=== PATIENT | male | born 1980 | race Caucasian/White ===

== ENCOUNTER 2016-09-18 12:26 | Emergency (ER) | payer MEDICAID ==
[~2016-09-18] VITALS: Ht 170.2 cm; Wt 105.5 kg
[~2016-09-18 12:26] MED LIST: ACET325T45 PO; AZIT250T94 PO; DOCU-144 PO; IBUP-1542 PO; IMO2 PO; PHEN177S43 MT; PROM6.25 PO
[2016-09-18 12:44] VITALS: Ht 170.2 cm; Wt 105.5 kg
--- NOTE | 2016-09-18 15:56 | ERD ---
ER Documentation Chief Complaint Date/Time DATE: 09/18/16 TIME: 15:52 Chief Complaint constipation; last bm yesterday; no complaint of rectal bleeding HPI Is a 36-year-old male who presents to the emergency department today complaining of constipation and rectal pain for the past 2 days. Patient states his last bowel movement was 2 days ago. Denies any nausea vomiting, abdominal pain, fevers or chills. He has not taken any medication for the pain. Denies taking any narcotics currently. ROS All systems reviewed and are negative except as per history of present illness. Medications Home Meds Active Scripts Hydrocortisone Acetate (Anusol-Hc) 25 Mg Supp.rect, 1 SUPP [place] QHS Y for HEMORROID PAIN/ITCHING, #12 SUPP.RECT Prov:ASHKAN JACOB PA-C 09/18/16 Acetaminophen* (Tylophen*) 500 Mg Capsule, 1 CAP PO Q6H Y for PAIN AND OR ELEVATED TEMP, #30 CAP Prov:ASHKAN JACOB PA-C 09/18/16 Naproxen* (Naprosyn*) 500 Mg Tablet, 500 MG PO BID Y for PAIN AND/OR INFLAMMATION, #30 TAB Prov:ASHKAN JACOB PA-C 09/18/16 Polyethylene Glycol* (Miralax*) 17 Gm Powd.pack, 17 GM PO DAILY, #20 Prov:ASHKAN JACOB PA-C 09/18/16 Docusate Sodium* (Colace*) 100 Mg Capsule, 100 MG PO TID, #30 CAP Prov:ASHKAN JACOB PA-C 09/18/16 Phenol* (Chloraseptic* [place]) 177 Ml [place].pump, 2 SPRAY MT Q2H Y for SORE THROAT, #1 BOTTLE Prov:IRINEO MCGOWAN DO 02/23/16 Acetaminophen* (Acetaminophen*) 325 Mg Tablet, 325 MG PO Q4H Y for PAIN AND OR ELEVATED TEMP, #20 TAB Prov:IRINEO MCGOWAN DO 02/23/16 Ibuprofen* (Ibuprofen*) 600 Mg Tablet, 600 MG PO Q8, #14 TAB Prov:IRINEO MCGOWAN DO 02/23/16 Loperamide Hcl* (Loperamide Hcl*) 2 Mg Cap, 2 MG PO after diarrhea, #10 CAP Prov:IRINEO MCGOWAN DO 02/23/16 Promethazine w/Codeine* (Phenergan w/Codeine* Syrup) 5 Ml Syrup, 5 ML PO Q4H Y for COUGH, #120 ML Prov:IRINEO MCGOWAN DO 02/23/16 Azithromycin* (Zithromax*) 250 Mg Tablet, 250 MG PO .ZPACK DIRECTED, #6 TAB TAKE 500 MG (2 TABS) THE FIRST DAY THEN 250 MG (1 TAB) DAYS 2-5 Prov:IRINEO MCGOWAN DO 02/23/16 Docusate Sodium* (Colace*) 100 Mg Capsule, 100 MG PO TID, #30 CAP Prov:AJ TEMPLETON PA-C 07/23/15 Allergies Allergies: Coded Allergies: Penicillins (Verified Allergy, Unknown, 02/23/16) PMhx/Soc History of Surgery: No (APPENDECTOMY 3 WKS AGO) Anesthesia Reaction: No Hx Neurological Disorder: No Hx Respiratory Disorders: No Hx Cardiac Disorders: No Hx Psychiatric Problems: No Hx Miscellaneous Medical Probl: No Hx Alcohol Use: No Hx Substance Use: No Hx Tobacco Use: No Physical Exam Vitals Vital Signs Date Time Temp Pulse Resp B/P Pulse Ox O2 Delivery O2 Flow Rate FiO2 09/18/16 12:44 98.6 89 18 142/88 98 Physical Exam Const: No acute distress Head: Atraumatic Eyes: Normal Conjunctiva ENT: Normal External Ears, Nose and Mouth. Neck: Full range of motion..~ No meningismus. Resp: Clear to auscultation bilaterally Cardio: Regular rate and rhythm, no murmurs Abd: Soft, non tender, non distended. Normal bowel sounds. : Rectal exam with evidence of bleeding and external hemorrhoids. No evidence of abscess. Skin: No petechiae or rashes Ext: No cyanosis, or edema Neur: Awake and alert Psych: Normal Mood and Affect Procedures/MDM This a 36-year-old male who presents to the emergency department today complaining of rectal pain and constipation for the past 2 days. Patient had been seen here approximately a little over a year ago for similar complaints after he was taking narcotics for an appendectomy. Patient denies taking any narcotics at this time. Patient has no abdominal pain on physical exam and did not feel the patient requires further laboratory workup or imaging at this time. His abdomen is soft and nontender. He has no nausea or vomiting and have low suspicion for obstruction at this time. Patient did have some bleeding on rectal exam and there was evidence of external hemorrhoids. Patient was unaware that he had rectal bleeding. He denied any blood in his stool. There is no evidence of abscess or thrombosed hemorrhoid at this time that would require an incision and drainage. Patient's rectal bleeding likely secondary to hemorrhoids and hemorrhoids likely caused by constipation and straining. Patient will be given a prescription for Colace, MiraLAX and Anusol as well as Naprosyn and Tylenol for pain At this time the patient is stable for discharge and outpatient management. Patient should follow up with their PCP in the next 1-2 days. They may return to the emergency department sooner for any persistent or worsening of symptoms. Patient understood and agreed with the plan. Departure Diagnosis: Primary Impression: Constipation Constipation type: unspecified constipation type Qualified Code: K59.00 - Constipation, unspecified constipation type Additional Impression: Hemorrhoids Hemorrhoid type: unspecified Qualified Code: K64.9 - Hemorrhoids, unspecified hemorrhoid type Condition: ASHKAN Ortega PA-C Sep 18, 2016 15:56
[2016-09-18] MEDS ORDERED: POLY17PO6 PO (15:57)
[2016-09-18] MEDS ORDERED: DOCU-144 PO (15:57)
[2016-09-18] MEDS ORDERED: NAPR-260 PO (15:57)
[2016-09-18] MEDS ORDERED: ACET500C5 PO (15:58)
[2016-09-18] MEDS ORDERED: HYDR25SU23 PR (15:59)
== END 2016-09-18 16:20 | disposition home or self-care (01) ==
LOC: FTE 12:26
DX: K59.00 Constipation, unspecified (principal); K64.4 Residual hemorrhoidal skin tags
CPT/HCPCS: 99284

== ENCOUNTER 2017-04-24 07:15 | Emergency (ER) | payer MEDICAID ==
[~2017-04-24] VITALS: Ht 175.3 cm; Wt 104.0 kg
[~2017-04-24 07:15] MED LIST changes: +ACET500C5 PO; +HYDR25SU23 PR; +NAPR-260 PO; +POLY17PO6 PO
[2017-04-24 07:18] VITALS: Ht 175.3 cm; Wt 104.0 kg
[2017-04-24 08:11] LABS: BASOPHILS % 0.3 % (0.0-2.0); EOSINOPHILS # 0.1 10^3/ul (0.0-0.5); HEMATOCRIT 44.3 % (42.0-52.0); HEMOGLOBIN 16.2 g/dl (14.0-18.0); LYMPHOCYTES # 2.1 10^3/ul (0.8-2.9); LYMPHOCYTES % 28.4 % (15.0-51.0); MEAN CORPUSCULAR HEMOGLOBIN 33.8 pg (29.0-33.0); MEAN CORPUSCULAR HGB CONC 36.6 g/dl (32.0-37.0); MEAN CORPUSCULAR VOLUME 92.5 fl (82.0-101.0); MEAN PLATELET VOLUME 10.2 fl (7.4-10.4); MONOCYTE # 0.3 10^3/ul (0.3-0.9); MONOCYTES % 4.4 % (0.0-11.0); NEUTROPHIL # 4.8 10^3/ul (1.6-7.5); NEUTROPHILS % 65.5 % (39.0-77.0); PLATELET COUNT 197 10^3/UL (140-415); RED BLOOD COUNT 4.79 10^6/ul (4.70-6.10); RED CELL DISTRIBUTION WIDTH 11.7 % (11.5-14.5); WHITE BLOOD COUNT 7.4 10^3/ul (4.8-10.8)
--- NOTE | 2017-04-24 08:20 | ERD ---
ER Documentation Chief Complaint Date/Time DATE: 04/24/17 TIME: 08:17 Chief Complaint Patient states he has chest pain and diarrhea since last night HPI 37-year-old male presenting to the emergency department complaining of nonradiating, hot left-sided chest pain that is 7 out of 10 since last night. Patient denies any shortness of breath, palpitations. Denies any medical problems or history of heart disease. Patient also states that he has had 5 episodes of diarrhea last night. He denies any fevers, nausea, vomiting. Denies any abdominal pain ROS All systems reviewed and are negative except as per history of present illness. Medications Home Meds Active Scripts Acetaminophen* (Tylenol*) 325 Mg Tablet, 2 TAB PO Q6 Y for PAIN AND OR ELEVATED TEMP, #20 TAB Prov:FERNANDO VERA PA-C 04/24/17 Hydrocortisone Acetate (Anusol-Hc) 25 Mg Supp.rect, 1 SUPP [place] QHS Y for HEMORROID PAIN/ITCHING, #12 SUPP.RECT Prov:ASHKAN JACOB PA-C 09/18/16 Acetaminophen* (Tylophen*) 500 Mg Capsule, 1 CAP PO Q6H Y for PAIN AND OR ELEVATED TEMP, #30 CAP Prov:ASHKAN JACOB PA-C 09/18/16 Naproxen* (Naprosyn*) 500 Mg Tablet, 500 MG PO BID Y for PAIN AND/OR INFLAMMATION, #30 TAB Prov:ASHKAN JACOB PA-C 09/18/16 Polyethylene Glycol* (Miralax*) 17 Gm Powd.pack, 17 GM PO DAILY, #20 Prov:ASHKAN JACOB PA-C 09/18/16 Docusate Sodium* (Colace*) 100 Mg Capsule, 100 MG PO TID, #30 CAP Prov:ASHKAN JACOB PA-C 09/18/16 Phenol* (Chloraseptic* [place]) 177 Ml [place].pump, 2 SPRAY MT Q2H Y for SORE THROAT, #1 BOTTLE Prov:IRINEO MCGOWAN DO 02/23/16 Acetaminophen* (Acetaminophen*) 325 Mg Tablet, 325 MG PO Q4H Y for PAIN AND OR ELEVATED TEMP, #20 TAB Prov:IRINEO MCGOWAN DO 02/23/16 Ibuprofen* (Ibuprofen*) 600 Mg Tablet, 600 MG PO Q8, #14 TAB Prov:IRINEO MCGOWAN DO 02/23/16 Loperamide Hcl* (Loperamide Hcl*) 2 Mg Cap, 2 MG PO after diarrhea, #10 CAP Prov:IRINEO MCGOWAN DO 02/23/16 Promethazine w/Codeine* (Phenergan w/Codeine* Syrup) 5 Ml Syrup, 5 ML PO Q4H Y for COUGH, #120 ML Prov:IRINEO MCGOWAN DO 02/23/16 Azithromycin* (Zithromax*) 250 Mg Tablet, 250 MG PO .ZPACK DIRECTED, #6 TAB TAKE 500 MG (2 TABS) THE FIRST DAY THEN 250 MG (1 TAB) DAYS 2-5 Prov:IRINEO MCGOWAN DO 02/23/16 Docusate Sodium* (Colace*) 100 Mg Capsule, 100 MG PO TID, #30 CAP Prov:AJ TEMPLETON PA-C 07/23/15 Allergies Allergies: Coded Allergies: Penicillins (Verified Allergy, Unknown, 02/23/16) PMhx/Soc History of Surgery: No (APPENDECTOMY 3 WKS AGO) Anesthesia Reaction: No Hx Neurological Disorder: No Hx Respiratory Disorders: No Hx Cardiac Disorders: No Hx Psychiatric Problems: No Hx Miscellaneous Medical Probl: No Hx Alcohol Use: No Hx Substance Use: No Hx Tobacco Use: No Physical Exam Vitals Vital Signs Date Time Temp Pulse Resp B/P Pulse Ox O2 Delivery O2 Flow Rate FiO2 04/24/17 07:18 97.7 88 20 133/97 98 Physical Exam GENERAL: no acute distress, non-toxic appearing, sitting up in bed HENT: normocephalic/atraumatic EYES: conjunctiva is normal NECK: no noticeable or palpable swelling, no carotid bruits, no JVD CARDIOVASCULAR: RRR, good S1S2, no murmurs or gallops heard PULM: clear to auscultation, no use of accessory muscles, no crackles or wheezes. ABDOMEN: normal bowel sounds, abdomen soft and nontender EXT: no edema, cyanosis or clubbing MUSCULOSKELETAL: 5/5 strength, normal range of motion, no swollen or erythematous joints. NEURO: alert and oriented SKIN: no rashes, skin warm and dry, no erythematous areas BREAST: breast exam was not relevant, therefore not preformed PSYCH: normal mood and mentation, denies suicidal or homicidal ideation and thoughts Result Diagram: 04/24/17 0750 04/24/17 0750 Results 24 hrs Laboratory Tests Test 04/24/17 07:50 White Blood Count 7.410^3/ul Red Blood Count 4.7910^6/ul Hemoglobin 16.2g/dl Hematocrit 44.3% Mean Corpuscular Volume 92.5fl Mean Corpuscular Hemoglobin 33.8pg Mean Corpuscular Hemoglobin Concent 36.6g/dl Red Cell Distribution Width 11.7% Platelet Count 60221^3/UL Mean Platelet Volume 10.2fl Neutrophils % 65.5% Lymphocytes % 28.4% Monocytes % 4.4% Eosinophils % 1.0% Basophils % 0.3% Nucleated Red Blood Cells % 0.0/100WBC Neutrophils # 4.810^3/ul Lymphocytes # 2.110^3/ul Monocytes # 0.310^3/ul Eosinophils # 0.110^3/ul Basophils # 0.010^3/ul Nucleated Red Blood Cells # 0.010^3/ul Sodium Level 139mmol/L Potassium Level 4.2mmol/L Chloride Level 102mmol/L Carbon Dioxide Level 28mmol/L Anion Gap 13 Blood Urea Nitrogen 13mg/dl Creatinine 0.82mg/dl Glucose Level 217mg/dl Calcium Level 9.4mg/dl Total Bilirubin 0.6mg/dl Direct Bilirubin 0.00mg/dl Indirect Bilirubin 0.6mg/dl Aspartate Amino Transf (AST/SGOT) 44IU/L Alanine Aminotransferase (ALT/SGPT) 112IU/L Alkaline Phosphatase 97IU/L Troponin I 0.042ng/ml Total Protein 8.3g/dl Albumin 4.5g/dl Globulin 3.80g/dl Albumin/Globulin Ratio 1.18 Procedures/MDM This is a 37-year-old male presenting to the emergency department complaining of chest pain and diarrhea since last night. I have a low suspicion for ACS, pulmonary embolism, pneumonia or pleural effusion. Patient has stable vital signs and appears well to be discharged home to follow-up with hIS regular physician. Troponins negative. EKG: read and signed off by myself and Rate/Rhythm: Normal Sinus Rhythm 82bpm QRS, ST, T-waves: No changes consistent w/ acute ischemia Impression: No evidence of ischemia or arrhythmia Chest X-ray 1V Interpreted by me: Soft Tissue: No acute abnormalities Bones: No acute abnormalities Mediastinum/Cardiac Silhouette/Lungs: No acute abnormalities Departure Diagnosis: Primary Impression: Chest pain Chest pain type: unspecified Qualified Code: R07.9 - Chest pain, unspecified type Additional Impression: Diarrhea Condition: Stable FERNANDO VERA PA-C Apr 24, 2017 08:20
--- NOTE | 2017-04-24 08:25 | RADRPT ---
PROCEDURE: XR Chest. CLINICAL INDICATION: chest pain TECHNIQUE: Single frontal view of the chest was obtained COMPARISON: None FINDINGS: The heart and mediastinum are within normal limits. The lungs are clear. There is no pleural effusion or pneumothorax. RPTAT: AA IMPRESSION: No acute disease. .Luis Medina MD, Date Time Electronically viewed and signed by .Luis Medina MD, on 04/24/2017 08:25 .S/
[2017-04-24] MEDS ORDERED: ACET325T33 PO (08:31)
[2017-04-24 08:37] LABS: ALBUMIN 4.5 g/dl (3.3-4.9); ALBUMIN/GLOBULIN RATIO 1.18; BILIRUBIN,INDIRECT 0.6 mg/dl (0-1.1); BILIRUBIN,TOTAL 0.6 mg/dl (0.2-1.3); CALCIUM 9.4 mg/dl (8.4-10.2); CREATININE 0.82 mg/dl (0.61-1.24); POTASSIUM 4.2 mmol/L (3.5-5.1); TOTAL PROTEIN 8.3 g/dl (6.1-8.1)
[2017-04-24 08:48] LABS: TROPONIN-I 0.042 ng/ml (0.00-0.12)
--- NOTE | 2017-04-24 08:55 | QN ---
Documentation Comment My independent concise history is chest pain and diarrhea. My pertinent physical exam findings are no abnormal findings on physical exam. The plan is laboratory studies, EKG, and chest x-ray were all normal. The patient will be discharged home but will need close follow-up with his primary doctor within 24- 48 hours for reevaluation. At this point I doubt acute coronary syndrome, pneumonia, pneumothorax, pulmonary embolism, or aortic dissection. BEATRIZ WALKER MD Apr 24, 2017 08:55
== END 2017-04-24 09:10 | disposition home or self-care (01) ==
LOC: FTE 07:15
DX: R07.9 Chest pain, unspecified (principal); R19.7 Diarrhea, unspecified
CPT/HCPCS: 36415; 71010; 80053; 84484; 85025; Z7502

== ENCOUNTER 2017-07-14 08:01 | Emergency (ER) | END 2017-07-14 08:37 | disposition home or self-care (01) ==

== ENCOUNTER 2017-09-14 18:07 | Emergency (ER) | END 2017-09-15 00:20 | disposition home or self-care (01) ==

== ENCOUNTER 2018-05-21 11:23 | Emergency (ER) | END 2018-05-21 12:49 | disposition left against medical advice (07) ==

== ENCOUNTER 2018-05-22 11:05 | Emergency (ER) | END 2018-05-22 12:02 | disposition home or self-care (01) ==